=== PATIENT | male | born 1950 | race Caucasian/White ===

== ENCOUNTER → 2019-01-04 | Outpatient (CLI) | payer MEDICARE, BC ==
[~2019-01-04] MED LIST: LEVO88TA2 PO; LOSA50TA14 PO
== END | disposition home or self-care (01) ==
LOC: STAR 14:15
PROVIDERS: ATTEND Surgery
DX: Z01.818 Encounter for other preprocedural examination (principal); K40.90 Unilateral inguinal hernia, without obstruction or gangrene, not specified as recurrent
CPT/HCPCS: 93005

== ENCOUNTER 2019-01-18 10:03 | Day surgery (SDC) | payer MEDICARE, BC ==
[~2019-01-18] VITALS: Ht 167.6 cm; Wt 65.2 kg
[~2019-01-18 10:03] MED LIST changes: +BUPIVACAINE/EPI 0.5% 1:200K ONE
[2019-01-18] MEDS ORDERED: LACTATED RINGERS 1,000 ML IV SCH ×2 (10:24→19:30)
[2019-01-18] MEDS ORDERED: GABAPENTIN 300 MG CAPSULE PO ONE (10:30)
[2019-01-18] MEDS ORDERED: ACETAMINOPHEN 500 MG TABLET PO ONE (10:30)
[2019-01-18 10:57] VITALS: BP 144/96
[2019-01-18] MEDS ORDERED: MIDAZOLAM 1 MG/ML, 2ML ONE (12:20)
[2019-01-18] MEDS ORDERED: FENTANYL PF 250 MCG/5ML ONE (12:20)
[2019-01-18] MEDS ORDERED: GLYCOPYRROLATE 0.2MG/1ML, 5ML ONE (12:23)
[2019-01-18] MEDS ORDERED: NEOSTIGMINE 1 MG/ML, 10ML ONE (12:23)
[2019-01-18] MEDS ORDERED: ROCURONIUM 10MG/ML,5ML ONE (12:23)
[2019-01-18] MEDS ORDERED: CEFAZOLIN 1,000 MG ONE (12:23)
[2019-01-18] MEDS ORDERED: PROPOFOL 10 MG/ML, 20ML ONE (12:23)
[2019-01-18] MEDS ORDERED: BUPIVACAINE/PF-EPI 0.5% 1:200K INFIL ONE (13:28)
[2019-01-18] MEDS ORDERED: PROMETHAZINE 25 MG/ML, 1ML IV PRN (13:30)
[2019-01-18] MEDS ORDERED: MORPHINE SULFATE 4 MG/ML, 1ML IVPush PRN ×2 (13:30→19:30)
[2019-01-18] MEDS ORDERED: PROMETHAZINE 12.5 MG SUPP PR PRN (13:30)
[2019-01-18] MEDS ORDERED: LABETALOL 5 MG/ML SYRINGE IV PRN (13:30)
[2019-01-18] MEDS ORDERED: ONDANSETRON 2MG/ML, 2ML IV PRN (13:30)
[2019-01-18] MEDS ORDERED: HYDROmorphone 2 MG/ML, 1ML IVPush PRN (13:30)
[2019-01-18] MEDS ORDERED: hydrALAzine 20 MG/ML, 1ML IV PRN (13:30)
[2019-01-18] MEDS ORDERED: OXYcodone 5 MG/5 ML ORAL.SOL UDC PO PRN (13:30)
[2019-01-18] MEDS ORDERED: PROMETHAZINE 25 MG/ML, 1ML IM PRN ×2 (13:30)
[2019-01-18] MEDS ORDERED: ONDANSETRON ODT 8 MG PO PRN (13:30)
[2019-01-18] MEDS ORDERED: PROMETHAZINE 25 MG SUPP PR PRN (13:30)
[2019-01-18] MEDS ORDERED: MEPERIDINE/PF 25MG/0.5ML IVPush PRN (13:30)
[2019-01-18] MEDS ORDERED: DEXAMETHASONE 4 MG/ML, 1ML ONE ×2 (13:33)
[2019-01-18] MEDS ORDERED: ONDANSETRON 2MG/ML, 2ML ONE (13:33)
[2019-01-18] MEDS ORDERED: FENTANYL PF 100 MCG/2ML ONE ×2 (13:53→14:45)
[2019-01-18] MEDS ORDERED: OXYcodone 5 MG/5 ML ORAL.SOL UDC ONE ×2 (14:45)
[2019-01-18] MEDS: FENTANYL PF 100 MCG/2ML IV PRN ×3 (14:46→15:15)
[2019-01-18] MEDS ORDERED: morphine SULFATE 10 MG/ML, 1ML ONE (16:05)
[2019-01-18] MEDS ORDERED: HYDROcodone/APAP 5/325 TABLET PO PRN (19:30)
[2019-01-18] MEDS ORDERED: ONDANSETRON 2MG/ML, 2ML IVPush PRN (19:30)
[2019-01-18] MEDS ORDERED: OXYcodone/APAP 5/325MG TABLET PO PRN (19:30)
[2019-01-19] MEDS ORDERED: LEVOTHYROXINE 88 MCG TABLET PO SCH (06:00)
[2019-01-19] MEDS ORDERED: LOSARTAN 50MG TABLET PO SCH (09:00)
== END 2019-01-18 21:25 | disposition home or self-care (01) ==
LOC: OUT 10:03 → 4NOR 18:55 → OUT 21:25
PROVIDERS: ATTEND Surgery
DX: K40.90 Unilateral inguinal hernia, without obstruction or gangrene, not specified as recurrent (principal); I10 Essential (primary) hypertension; E03.9 Hypothyroidism, unspecified; Z72.89 Other problems related to lifestyle
CPT/HCPCS: 49650; C1781; J0690; J1100; J2250; J2405; J2704; J2710; J3010; J7120; G0378; J2270